=== PATIENT | male | born 2000 | race Caucasian/White ===

== ENCOUNTER 2020-11-24 10:27 | Outpatient (REF) | payer BC, MEDICAID, SELFPAY ==
[2020-11-24 11:17] LABS: MANUAL DIFF FLAG NO
[2020-11-24 11:29] LABS: Basophils Absolute Auto 0.1 X10*3/uL (0.0-0.2); Basophils Percent Auto 0.4 % (0-2); Eosinophils Absolute Auto 0.1 X10*3/uL (0.0-0.4); Hematocrit 47.9 % (42-52); Hemoglobin 16.2 g/dl (14.0-18.0); Imm Gran Abs Auto 0.03 X10*3/uL (0.00-0.03); Imm Gran Pct Auto 0.2 % (0.0-0.4); Lymphocytes Absolute Auto 3.6 X10*3/uL (1.2-4.9); Lymphocytes Percent Auto 29.4 % (20-40); Mean Corpuscular HGB Conc 33.8 g/dl (31.0-36.0); Mean Corpuscular Hemoglobin 30.6 pg (27.0-33.0); Mean Corpuscular Volume 90.4 fL (80-98); Mean Platelet Volume 10.7 fL (9.4-12.4); Monocytes Absolute Auto 0.9 X10*3/uL (0.1-1.2); Monocytes Percent Auto 6.9 % (2-11); Neutrophils Absolute Auto 7.7 X10*3/uL (2.0-8.3); Neutrophils Percent Auto 62.1 % (45-73); Platelet Count 302 X10*3/uL (160-400); Red Cell Distribution Width 13.3 % (11.0-16.0); White Blood Count 12.3 X10*3/uL (4.8-10.8)
[2020-11-24 12:11] LABS: TSH reflex Free T4 1.99 uIU/mL (0.32-4.0)
[2020-12-01 06:26] LABS: Vitamin D 25-OH, D2 <4 ng/mL; Vitamin D 25-OH, D3 <4 ng/mL; Vitamin D 25-OH, Total <4 ng/mL (30-100)
== END 2020-11-24 10:28 | disposition home or self-care (01) ==
LOC: HO.LAB 10:27
PROVIDERS: PCP Pediatrics; Visit Provider Pediatrics
DX: F32.2 Major depressive disorder, single episode, severe without psychotic features (principal)
CPT/HCPCS: 36415; 82306; 84443; 85025

== ENCOUNTER 2021-11-01 14:17 | Outpatient (REF) | payer OTHER, MEDICAID, SELFPAY ==
[2021-11-01 14:34] LABS: MANUAL DIFF FLAG NO
[2021-11-01 14:59] LABS: Basophils Absolute Auto 0.1 X10*3/uL (0.0-0.2); Basophils Percent Auto 0.5 % (0-2); Eosinophils Absolute Auto 0.2 X10*3/uL (0.0-0.4); Eosinophils Percent Auto 1.8 % (0-4); Hematocrit 46.6 % (42.0-52.0); Hemoglobin 15.8 g/dl (14.0-18.0); Imm Gran Abs Auto 0.04 X10*3/uL (0.00-0.03); Imm Gran Pct Auto 0.3 % (0.0-0.4); Lymphocytes Absolute Auto 3.1 X10*3/uL (1.2-4.9); Lymphocytes Percent Auto 25.5 % (20-40); Mean Corpuscular HGB Conc 33.9 g/dl (31.0-36.0); Mean Corpuscular Hemoglobin 29.7 pg (27.0-33.0); Mean Corpuscular Volume 87.6 fL (80.0-98.0); Mean Platelet Volume 10.4 fL (9.4-12.4); Monocytes Absolute Auto 1.2 X10*3/uL (0.1-1.2); Monocytes Percent Auto 9.5 % (2-11); Neutrophils Absolute Auto 7.5 x10*3/uL (2.0-8.3); Neutrophils Percent Auto 62.4 % (45-73); Platelet Count 306 X10*3/uL (160-400); Red Blood Count 5.32 X10*6/uL (4.60-5.80); Red Cell Distribution Width 13.4 % (11.0-16.0); White Blood Count 12.1 X10*3/uL (4.8-10.8)
[2021-11-01 15:23] LABS: Alanine Aminotransferase 38 U/L (0-40); Albumin Level 4.9 g/dL (3.5-5.0); Alkaline Phosphatase 63 U/L (39-117); Anion Gap 12 (12-20); Aspartate Amino Transferase 27 U/L (5-37); Bilirubin Total 1.5 mg/dL (0.0-1.0); Blood Urea Nitrogen 11 mg/dL (9-16); Carbon Dioxide 28 mmol/L (22-29); Chloride 103 mmol/L (96-108); Estimated Glomerular Filt Rate > 60; Glucose Random 107 mg/dL (60-115); Potassium 3.9 mmol/L (3.3-5.1); Sodium 139 mmol/L (135-145); Total Protein 7.8 g/dL (6.5-8.0)
[2021-11-01 15:44] LABS: TSH reflex Free T4 3.69 uIU/mL (0.32-4.0); Vitamin D 25-OH Total 7.3 ng/mL (>30)
[2021-11-01 15:48] LABS: Vitamin B12 860 pg/mL (200-900)
== END 2021-11-01 14:18 | disposition home or self-care (01) ==
LOC: HO.LAB 14:17
PROVIDERS: PCP Pediatrics; Visit Provider Nurse Practitioner Psychiatric/Mental Health
DX: F33.1 Major depressive disorder, recurrent, moderate (principal)
CPT/HCPCS: 36415; 80053; 82306; 82607; 84443; 85025

== ENCOUNTER 2022-07-09 11:08 | Outpatient (REF) | payer OTHER, MEDICAID, SELFPAY ==
[2022-07-09 11:40] LABS: MANUAL DIFF FLAG NO
[2022-07-09 11:52] LABS: Basophils Absolute Auto 0.1 X10*3/uL (0.0-0.2); Basophils Percent Auto 0.7 % (0-2); Eosinophils Absolute Auto 0.2 X10*3/uL (0.0-0.4); Eosinophils Percent Auto 1.7 % (0-4); Hematocrit 47.1 % (42.0-52.0); Imm Gran Abs Auto 0.03 X10*3/uL (0.00-0.03); Imm Gran Pct Auto 0.3 % (0.0-0.4); Lymphocytes Absolute Auto 4.3 X10*3/uL (1.2-4.9); Lymphocytes Percent Auto 40.1 % (20-40); Mean Corpuscular Hemoglobin 29.6 pg (27.0-33.0); Mean Corpuscular Volume 87.1 fL (80.0-98.0); Mean Platelet Volume 11.1 fL (9.4-12.4); Monocytes Absolute Auto 0.9 X10*3/uL (0.1-1.2); Monocytes Percent Auto 8.5 % (2-11); Neutrophils Absolute Auto 5.3 x10*3/uL (2.0-8.3); Neutrophils Percent Auto 48.7 % (45-73); Platelet Count 302 X10*3/uL (160-400); Red Blood Count 5.41 X10*6/uL (4.60-5.80); Red Cell Distribution Width 13.7 % (11.0-16.0); White Blood Count 10.8 X10*3/uL (4.8-10.8)
[2022-07-09 13:56] LABS: Alanine Aminotransferase 18 U/L (0-40); Albumin Level 5.1 g/dL (3.5-5.0); Alkaline Phosphatase 65 U/L (39-117); Anion Gap 17 (12-20); Aspartate Amino Transferase 15 U/L (5-37); Bilirubin Total 1.5 mg/dL (0.0-1.0); Blood Urea Nitrogen 11 mg/dL (9-16); Carbon Dioxide 27 mmol/L (22-29); Chloride 104 mmol/L (96-108); Cholesterol 150 mg/dL; Estimated Glomerular Filt Rate > 60; Glucose Fasting 87 mg/dL (60-99); HDL Cholesterol 27 mg/dL; LDL Cholesterol Calculated 100 mg/dl; Potassium 4.5 mmol/L (3.3-5.1); Sodium 143 mmol/L (135-145); Total Protein 7.8 g/dL (6.5-8.0); Triglycerides 117 mg/dL
[2022-07-09 14:15] LABS: TSH reflex Free T4 3.76 uIU/mL (0.32-4.0)
== END 2022-07-09 11:09 | disposition home or self-care (01) ==
LOC: HO.HMGCLDS 11:08
PROVIDERS: PCP Nurse Practitioner Family; Visit Provider Nurse Practitioner Family
DX: Z00.00 Encounter for general adult medical examination without abnormal findings (principal)
CPT/HCPCS: 36415; 80053; 80061; 84443; 85025

== ENCOUNTER 2022-07-15 09:29 | Outpatient (REF) | payer OTHER, MEDICAID, SELFPAY ==
[2022-07-15 11:21] LABS: Appearance Urine Clear; Color Urine Yellow; Glucose Urine UA Negative (Negative); Leukocyte Esterase Urine Negative (Negative); Nitrite Urine Negative (Negative); Specific Gravity - Urine >= 1.030 (1.005-1.025); Urine Blood Negative (Negative); Urine Ketones 15 mg/dL (Negative); Urine Protein Trace mg/dL (Neg-Trace)
== END 2022-07-15 09:30 | disposition home or self-care (01) ==
LOC: HO.HMGCLDS 09:29
PROVIDERS: PCP Nurse Practitioner Family; Visit Provider Nurse Practitioner Family
DX: Z00.00 Encounter for general adult medical examination without abnormal findings (principal)
CPT/HCPCS: 81003

== ENCOUNTER 2022-09-08 10:10 | Outpatient (REF) | payer OTHER, MEDICAID, SELFPAY ==
[2022-09-08 11:43] LABS: Bilirubin Direct 0.7 mg/dL (0.0-0.5)
== END 2022-09-08 10:11 | disposition home or self-care (01) ==
LOC: HO.HMGCLDS 10:10
PROVIDERS: PCP Nurse Practitioner Family; Visit Provider Internal Medicine
DX: R17 Unspecified jaundice (principal)
CPT/HCPCS: 36415; 82247; 82248

== ENCOUNTER 2022-09-29 09:50 | Outpatient (REF) | payer OTHER, MEDICAID, SELFPAY ==
--- NOTE | ~2022-09-29 | US_ITS ---
EXAMINATION: US ABDOMEN COMPLETE CLINICAL INFORMATION: Unspecified jaundice. COMPARISON: None TECHNIQUE: Real-time imaging of the abdominal viscera. FINDINGS: PANCREAS: Largely obscured by overlapping bowel gas. ABDOMINAL AORTA: The proximal, mid, and distal segments are normal in caliber. INFERIOR VENA CAVA: Visualized portions are normal. LIVER: Normal. The liver is normal in size. The liver contour is normal. Parenchymal echogenicity is normal. No focal hepatic lesion. There is no intrahepatic biliary duct dilatation seen. GALLBLADDER: Normal. The gallbladder is physiologically distended without evidence of stones, sludge, polyps, wall thickening or pericholecystic fluid. COMMON BILE DUCT: Normal in caliber measuring 0.2 cm in diameter. RIGHT KIDNEY: Normal. No hydronephrosis. No renal calculi or focal parenchymal lesions. The kidney measures 10.8 cm in maximum dimension. LEFT KIDNEY: Normal. No hydronephrosis. No renal calculi or focal parenchymal lesions. The kidney measures 10.6 cm in maximum dimension. SPLEEN: Normal. The spleen measures 9.9 cm in maximum dimension. FREE FLUID: None. US/US abdomen complete IMPRESSION: Unremarkable abdominal ultrasound examination, with imaging of the pancreas technically limited.
== END 2022-09-29 09:51 | disposition home or self-care (01) ==
LOC: HO.HMGCX 09:50
PROVIDERS: PCP Nurse Practitioner Family; Visit Provider Nurse Practitioner Family
DX: R17 Unspecified jaundice (principal)
CPT/HCPCS: 76700

== ENCOUNTER → 2022-10-26 14:51 | Outpatient (BNVA) | payer OTHER, MEDICAID, SELFPAY | PROVIDERS: PCP Nurse Practitioner Family; Visit Provider Internal Medicine | DX: Z13.89 Encounter for screening for other disorder (principal) ==

== ENCOUNTER 2022-11-24 12:03 | Outpatient (REF) | payer OTHER, MEDICAID, SELFPAY ==
[2022-11-24 14:31] LABS: Reticulocyte Percent 1.1 % (0.5-1.8); Reticulocytes Absolute 0.059 X10*6/uL (0.026-0.095)
[2022-11-24 15:05] LABS: Lactate Dehydrogenase 152 U/L (118-273)
[2022-11-26 12:54] LABS: Haptoglobin 120 mg/dL (43-212)
== END 2022-11-24 12:04 | disposition home or self-care (01) ==
LOC: HO.HMGCLDS 12:03
PROVIDERS: PCP Nurse Practitioner Family; Visit Provider Internal Medicine
DX: R17 Unspecified jaundice (principal)
CPT/HCPCS: 36415; 83010; 83615; 85045

== ENCOUNTER 2023-06-29 16:13 | Outpatient (AMB) | payer OTHER, MEDICAID, SELFPAY ==
--- NOTE | 2023-06-29 16:24 | A.OFFPC_ITS ---
Vital Signs 06/29/23 16:27 Height 5 ft 10 in Weight 172 lb BMI 24.7 BP 100/68 Blood Pressure Location Rt brachial Position Sitting Pulse 88 Pulse Source Pulse Oximeter Pulse Oximetry (%) 98 Oxygen Delivery Method Room Air Intake Visit Reasons: PE Allergies No Known Allergies Allergy (Verified 06/29/23 16:28) Medication List - Last Reconciled 06/29/23 by ROBERT Gamez No Known Home Meds Tobacco use date assessed: 12/20/22 Dental Screening Dental Screen Date: 06/29/23 Did you have a dental visit in the last 12 months?: Yes Did you have a dental problem in the last 6 months where you did not have access to dental care?: No Was dental information given to patient?: Patient has dentist HPI PE HPI Details Pt is here for a PE. Labs have already been ordered. Anxiety/depression: Pt reports increased anxiety and depression. Pt has tried multiple medications for this in the past which were not effective. He reports mostly staying in his room and not interacting with people much because of this. He had a friend pass away during his sophomore year of high school which still affects him. Will send citalopram 10mg. Denies any SI and HI. Pt is also interested in seeing a therapist, will consult team. [facility] Medical History (Updated 11/29/22 @ 12:01 by ROBERT Gamez) Ethel disease Surgical History No pertinent past surgical history Family History Mother No problems noted. Father Bipolar 1 disorder Other Mental health disorder Social History Household Members: Family Housing: Apartment Alcohol intake: current Alcohol intake frequency: a few times a week Patient Tobacco Use Status: Never used Tobacco e-Cigarette/Vaping Use: Never Used Second Hand Smoke Exposure: No service: No Current occupational status: unemployed Cognitive needs: No Hearing needs: No Vision needs: Yes (glasses) Questionnaire PHQ-9 Over the last 2 weeks, how often have you been bothered by any of the following problems? 1. Little interest or pleasure in doing things: nearly every day 2. Feeling down, depressed, or hopeless: nearly every day 3. Trouble falling or staying asleep, or sleeping too much: nearly every day 4. Feeling tired or having little energy: nearly every day 5. Poor appetite or overeating: nearly every day 6. Feeling bad about yourself - or that you are a failure or have let yourself or your family down: nearly every day 7. Trouble concentrating on things, such as reading the newspaper or watching television: nearly every day 8. Moving or speaking so slowly that other people could have noticed. Or the opposite - being so fidgety or restless that you have been moving around a lot more than usual: not at all 9. Thoughts that you would be better off or of hurting yourself in some way: several days Total score: 22 Depression Screening Interpretation: Positive Depression Screening Done: Yes 64854 - PHQ-9 Billing: Yes Source: Developed by Drs. Darrick Grady, Mery Conner, Luca Escamilla and colleagues, with an educational kayley from [employer]. Thrive Questionnaire Date Thrive assessed: 12/20/22 I am a: Patient What is your living situation today?: I have a steady place to live Within the past 12 months, did the food you bought not last and you didn't have the money to get more?: Never true Within the past 12 months, did you worry whether your food would run out before you got money to buy more?: Never true Do you have trouble paying for medicines?: No Do you have trouble getting transportation to medical appointments?: No Do you have trouble paying your heating and electricity bill?: No Do you have trouble taking care of your child, family member or friend?: No Do you have trouble with day-to-day activities such as bathing, preparing meals, shopping, managing finances, etc.?: No Are you currently unemployed and looking for a job?: No Are you interested in more education?: No AUDIT C Alcohol Use Questionnaire (AUDIT-C) 1. How often do you have a drink containing alcohol?: Monthly or less 2. How many drinks containing alcohol do you have on a typical day when you are drinking?: 1 or 2 3. How often do you have six or more drinks on one occasion?: Never Total Score: 1 Score Reviewed/Action Taken: No ESTEFANÍA-7 AMB Questionnaire ESTEFANÍA-7 Date ESTEFANÍA - 7 assessed: 12/20/22 Feeling nervous, anxious, or on edge: 3 = Nearly every day Not being able to stop or control worryin = Nearly every day Worrying too much about different things: 3 = Nearly every day Trouble relaxin = Nearly every day Being so restless that it is hard to sit still: 3 = Nearly every day Becoming easily annoyed or irritable: 3 = Nearly every day Feeling afraid as if something awful might happen: 2 = More than half the days Total ESTEFANÍA-7 score (0-4 normal; 5-9 mild; 10-14 moderate; 15-21 severe): 20 Source: Developed by Drs. Darrick Grady, Mery Conner, Luca Escamilla and colleagues, with an educational kayley from [employer]. ESTEFANÍA-7 Assessment Billing ESTEFANÍA-7 Assessment Tool: ESTEFANÍA-7 Assessment 78480 Review of Systems Const Denies chills and Denies fever(s) Eyes Denies blurry vision ENT Denies vertigo, Denies dizziness and Denies sore throat Card Denies chest pain at rest, Denies chest pain with activity, Denies diaphoresis, Denies dyspnea and Denies dyspnea on exertion Resp Denies cough, Denies dyspnea, Denies dyspnea on exertion and Denies wheezing GI Denies abdominal pain, Denies melena, Denies hematochezia, Denies constipation, Denies diarrhea and Denies loose stools Denies hematuria Musc Denies numbness and Denies tingling Skin/Breast Denies lesions Neuro Denies vertigo, Denies dizziness, Denies numbness and Denies tingling Psych Reports anxiety, Reports depression, Denies homicidal ideation, Denies suicidal ideation and Denies other (substance abuse) Aller/Immun Denies wheezing Physical exam (Primary Care) Vital Signs: Last Vital Signs Pulse 88 06/29/23 16:27 BP 100/68 06/29/23 16:27 Pulse Ox 98 06/29/23 16:27 Oxygen Delivery Method Room Air 06/29/23 16:27 BMI result Body Mass Index 24.7 Tobacco/Smoking Status: Tobacco use Status Tobacco use date assessed 12/20/22 06/29/23 16:25 Patient Tobacco Use Status Never used Tobacco 06/29/23 16:25 e-Cigarette/Vaping Use Never Used 06/29/23 16:25 PHQ-9: PHQ-9 Score PHQ-9: Total score 22 06/29/23 17:35 Depression Screening Interpretation: Positive Thrive Assessment: Date of Thrive Assessment Date Thrive assessed 12/20/22 06/29/23 16:25 Const General: cooperative Nutritional Appearance: well nourished Orientation/consciousness: patient oriented x3 HENMT Head: Yes normal to inspection, Yes normocephalic and Yes atraumatic Ears: TM's normal bilaterally Eyes General: appearance normal, both eyes and all related structures Alignment and Position: alignment normal and position normal Neck Neck: Yes normal visual inspection and Yes no lymphadenopathy Thyroid: Thyroid normal Resp Effort & Inspection: normal respiratory effort Auscultation: clear to auscultation bilaterally Cardio Rate: regular rate Rhythm: regular rhythm Heart sounds: S1 normal heart sound present, S2 normal heart sound present and no murmurs GI Palpation (GI): Soft to palpation and nontender Auscultation: normal bowel sounds Skin Rashes: no rashes Neuro General: patient oriented x3, moves all extremities, no focal motor deficits and deep tendon reflexes 2+ bilaterally Romberg Test: Negative Psych Appearance: grossly normal Mental Status: mental status grossly normal Speech and movement: Normal speech and movement present Affect: normal affect Attitude: cooperative Thought process: Normal thought process present Thought content: Normal thought content present Insight: Good insight present (Psych) Judgement: Good judgement present (Psych) Assessment and Plan Assessment & Plan (1) Depression: Code(s): F32.9 - Major depressive disorder, single episode, unspecified Qualifiers: Depression Type: major depressive disorder Major depression recurrence: unspecified whether recurrent Active/Remission status: currently active Major depression episode severity: severe Psychotic features: without psychotic features Qualified Code(s): F32.2 - Major depressive disorder, single episode, severe without psychotic features (2) Anxiety: Code(s): F41.9 - Anxiety disorder, unspecified (3) Physical exam: Code(s): Z00.00 - Encounter for general adult medical examination without abnormal findings Plan The patient agreed to the use of a medical information officer for this encounter. Scribed for ROBERT Wellington by Siria Magdaleno, medical information officer, on 06/29/2023 at 16:40 EST Medications: New citalopram 10 mg PO DAILY 90 tabs 0RF 90 days Coding Level of Care Code Est Pt Prev Care 18-39y(18756) Diagnoses Current severe episode of major depressive disorder without psychotic features, unspecified whether recurrent F32.2 Depression Type: major depressive disorder Major depression recurrence: unspecified whether recurrent Active/Remission status: currently active Major depression episode severity: severe Psychotic features: without psychotic features Anxiety F41.9 Physical exam Z00.00 Additional Codes ESTEFANÍA-7 Assessment Billing - ESTEFANÍA-7 Assessment Tool: ESTEFANÍA-7 Assessment [id number] ([id number])
[2023-06-29 16:27] VITALS: BP 100/68; PULSE 88; O2SAT 98; BMI 24.7
== END 2023-06-29 17:13 | disposition home or self-care (01) ==
PROVIDERS: Visit Provider Nurse Practitioner Family
DX: Z00.00 Encounter for general adult medical examination without abnormal findings (principal); F32.2 Major depressive disorder, single episode, severe without psychotic features; F41.9 Anxiety disorder, unspecified
CPT/HCPCS: 96127; 99395

== ENCOUNTER 2023-09-25 10:10 | Outpatient (REF) | payer OTHER, MEDICAID, SELFPAY ==
[2023-09-25 13:35] LABS: MANUAL DIFF FLAG NO
[2023-09-25 13:46] LABS: Basophils Absolute Auto 0.1 X10*3/uL (0.0-0.2); Basophils Percent Auto 0.8 % (0-2); Eosinophils Absolute Auto 0.2 X10*3/uL (0.0-0.4); Hematocrit 48.3 % (42.0-52.0); Hemoglobin 16.5 g/dl (14.0-18.0); Imm Gran Abs Auto 0.03 X10*3/uL (0.00-0.03); Imm Gran Pct Auto 0.3 % (0.0-0.4); Lymphocytes Absolute Auto 3.5 X10*3/uL (1.2-4.9); Lymphocytes Percent Auto 35.4 % (20-40); Mean Corpuscular HGB Conc 34.2 g/dl (31.0-36.0); Mean Corpuscular Hemoglobin 30.8 pg (27.0-33.0); Mean Corpuscular Volume 90.3 fL (80.0-98.0); Monocytes Absolute Auto 0.8 X10*3/uL (0.1-1.2); Monocytes Percent Auto 8.5 % (2-11); Neutrophils Absolute Auto 5.3 x10*3/uL (2.0-8.3); Platelet Count 283 X10*3/uL (160-400); Red Blood Count 5.35 X10*6/uL (4.60-5.80); Red Cell Distribution Width 13.6 % (11.0-16.0); White Blood Count 9.9 X10*3/uL (4.8-10.8)
[2023-09-25 13:49] LABS: Appearance Urine Turbid; Color Urine Dark Yellow; Glucose Urine UA Negative (Negative); Leukocyte Esterase Urine Negative (Negative); Nitrite Urine Negative (Negative); PH 5.5 (5.0-9.0); Specific Gravity - Urine >= 1.030 (1.005-1.025); Urine Blood Negative (Negative); Urine Ketones Negative (Negative); Urine Protein Negative (Neg-Trace)
[2023-09-25 14:27] LABS: Alanine Aminotransferase 47 U/L (0-40); Albumin Level 4.7 g/dL (3.5-5.0); Alkaline Phosphatase 56 U/L (39-117); Anion Gap 13 (12-20); Aspartate Amino Transferase 27 U/L (5-37); Bilirubin Total 1.1 mg/dL (0.0-1.0); Blood Urea Nitrogen 9 mg/dL (9-16); Calcium 9.9 mg/dL (8.4-10.2); Carbon Dioxide 32 mmol/L (22-29); Chloride 102 mmol/L (96-108); Cholesterol 148 mg/dL (<200); Estimated Glomerular Filt Rate > 60; Glucose Fasting 87 mg/dL (60-99); HDL Cholesterol 29 mg/dL (>40); LDL Cholesterol Calculated 95 mg/dL (<100); Potassium 4.1 mmol/L (3.3-5.1); Sodium 143 mmol/L (135-145); Total Protein 7.7 g/dL (6.5-8.0); Triglycerides 120 mg/dL (<150)
[2023-09-25 14:33] LABS: TSH reflex Free T4 2.58 uIU/mL (0.32-4.0)
== END 2023-09-25 10:11 | disposition home or self-care (01) ==
LOC: HO.HMGCLDS 10:10
PROVIDERS: PCP Nurse Practitioner Family; Visit Provider Nurse Practitioner Family
DX: Z00.00 Encounter for general adult medical examination without abnormal findings (principal)
CPT/HCPCS: 36415; 80053; 80061; 81003; 84443; 85025

== ENCOUNTER 2023-10-11 09:33 | Outpatient (AMB) | payer OTHER, MEDICAID, SELFPAY ==
[2023-10-11 09:46] VITALS: BP 110/68; PULSE 86; O2SAT 98; BMI 26.3
--- NOTE | 2023-10-11 09:46 | A.OFFPC_ITS ---
Vital Signs 10/11/23 09:46 Height 5 ft 10 in Weight 183 lb 2 oz BMI 26.3 BP 110/68 Blood Pressure Location Lt brachial Position Sitting Pulse 86 Pulse Source Pulse Oximeter Pulse Oximetry (%) 98 Oxygen Delivery Method Room Air Intake Visit Reasons: 3-4 month follow up Intake Note: Pt is here to follow up for his anxiety and depression Allergies No Known Allergies Allergy (Verified 10/11/23 09:50) Medication List - Last Reconciled 10/11/23 by ROBERT Gamez citalopram 20 mg PO DAILY 90 days Tobacco use date assessed: 10/11/23 Dental Screening Dental Screen Date: 10/11/23 Did you have a dental visit in the last 12 months?: Yes Did you have a dental problem in the last 6 months where you did not have access to dental care?: No Was dental information given to patient?: Patient has dentist HPI 3-4 month follow up HPI Details Anxiety/depression: Pt is currently taking citalopram 10mg. He is seeing a therapist. Pt reports that citalopram is working somewhat. Will incre ase from 10mg to 20mg. Denies any SI and HI. He is going outside intermittently to walk his dog. He also went to [employer] recently with his mother. Pt does not currently work. Goal is to get pt out into society more and start looking for a job. [facility] Medical History Emden disease Surgical History No pertinent past surgical history Family History Mother No problems noted. Father Bipolar 1 disorder Other Mental health disorder Social History Household Members: Family Housing: Apartment Alcohol intake: current Alcohol intake frequency: a few times a week Patient Tobacco Use Status: Never used Tobacco e-Cigarette/Vaping Use: Never Used Second Hand Smoke Exposure: No service: No Current occupational status: unemployed Cognitive needs: No Hearing needs: No Vision needs: Yes (glasses) Questionnaire PHQ-9 Over the last 2 weeks, how often have you been bothered by any of the following problems? 1. Little interest or pleasure in doing things: nearly every day 2. Feeling down, depressed, or hopeless: nearly every day 3. Trouble falling or staying asleep, or sleeping too much: nearly every day 4. Feeling tired or having little energy: nearly every day 5. Poor appetite or overeating: nearly every day 6. Feeling bad about yourself - or that you are a failure or have let yourself or your family down: nearly every day 7. Trouble concentrating on things, such as reading the newspaper or watching television: nearly every day 8. Moving or speaking so slowly that other people could have noticed. Or the opposite - being so fidgety or restless that you have been moving around a lot more than usual: not at all 9. Thoughts that you would be better off or of hurting yourself in some way: more than half the days Total score: 23 Source: Developed by Drs. Darrick Grady, Mery Conner, Luca Escamilla and colleagues, with an educational kayley from [employer]. Thrive Questionnaire Date Thrive assessed: 10/11/23 I am a: Patient What is your living situation today?: I have a steady place to live Within the past 12 months, did the food you bought not last and you didn't have the money to get more?: Never true Within the past 12 months, did you worry whether your food would run out before you got money to buy more?: Never true Do you have trouble paying for medicines?: No Do you have trouble getting transportation to medical appointments?: No Do you have trouble paying your heating and electricity bill?: No Do you have trouble taking care of your child, family member or friend?: No Do you have trouble with day-to-day activities such as bathing, preparing meals, shopping, managing finances, etc.?: No Are you currently unemployed and looking for a job?: No Are you interested in more education?: No THRIVE Score: 0 AUDIT C Alcohol Use Questionnaire (AUDIT-C) 1. How often do you have a drink containing alcohol?: Monthly or less 2. How many drinks containing alcohol do you have on a typical day when you are drinking?: 1 or 2 3. How often do you have six or more drinks on one occasion?: Less than monthly Total Score: 2 ESTEFANÍA-7 AMB Questionnaire ESTEFANÍA-7 Date ESTEFANÍA - 7 assessed: 10/11/23 Feeling nervous, anxious, or on edge: 3 = Nearly every day Not being able to stop or control worryin = Nearly every day Worrying too much about different things: 3 = Nearly every day Trouble relaxin = Nearly every day Being so restless that it is hard to sit still: 3 = Nearly every day Becoming easily annoyed or irritable: 1 = Several days Feeling afraid as if something awful might happen: 3 = Nearly every day Total ESTEFANÍA-7 score (0-4 normal; 5-9 mild; 10-14 moderate; 15-21 severe): 19 Source: Developed by Drs. Darrick Grady, Mery Conner, Luca Escamilla and colleagues, with an educational kayley from [employer]. Review of Systems Const Reports as per HPI Physical exam (Primary Care) Vital Signs: Last Vital Signs Pulse 86 10/11/23 09:46 BP 110/68 10/11/23 09:46 Pulse Ox 98 10/11/23 09:46 Oxygen Delivery Method Room Air 10/11/23 09:46 BMI result Body Mass Index 26.3 Tobacco/Smoking Status: Tobacco use Status Tobacco use date assessed 10/11/23 10/11/23 09:53 Patient Tobacco Use Status Never used Tobacco 10/11/23 09:46 e-Cigarette/Vaping Use Never Used 10/11/23 09:46 PHQ-9: PHQ-9 Score PHQ-9: Total score 23 10/11/23 10:06 Thrive Assessment: Date of Thrive Assessment Date Thrive assessed 10/11/23 10/11/23 09:57 Const General: cooperative Orientation/consciousness: patient oriented x3 Resp Effort & Inspection: normal respiratory effort Auscultation: clear to auscultation bilaterally Cardio Rate: regular rate Rhythm: regular rhythm Heart sounds: S1 normal heart sound present and S2 normal heart sound present Neuro General: patient oriented x3 Psych Appearance: grossly normal Mental Status: mental status grossly normal Speech and movement: Normal speech and movement present Affect: normal affect Attitude: cooperative Thought process: Normal thought process present Thought content: Normal thought content present Insight: Good insight present (Psych) Judgement: Good judgement present (Psych) Assessment and Plan Assessment & Plan (1) Anxiety: Code(s): F41.9 - Anxiety disorder, unspecified Plan: Increasing citalopram from 10mg to 20mg, goal is to get pt out in society more and to look for a job (2) Depression: Code(s): F32.9 - Major depressive disorder, single episode, unspecified Qualifiers: Active/Remission status: currently active Depression Type: major depressive disorder Major depression episode severity: severe Major depression recurrence: unspecified whether recurrent Psychotic features: without psychotic features Qualified Code(s): F32.2 - Major depressive disorder, single episode, severe without psychotic features Plan: Increasing citalopram from 10mg to 20mg, goal is to get pt out in society more and to look for a job Plan The patient agreed to the use of a medical genetics director for this encounter. Scribed for DARNELL Wellington-JOHN PAUL by Siria Dolan medical genetics director, on 10/11/2023 at 10:00 EST. Medications: Changed From citalopram 10 mg PO DAILY 90 days 90 tabs 0RF To citalopram 20 mg PO DAILY 90 days 90 tabs 0RF Coding Level of Care Code Est Pt Level 3 (45846) Diagnoses Anxiety F41.9 Current severe episode of major depressive disorder without psychotic features, unspecified whether recurrent F32.2 Active/Remission status: currently active Depression Type: major depressive disorder Major depression episode severity: severe Major depression recurrence: unspecified whether recurrent Psychotic features: without psychotic features
== END 2023-10-11 10:14 | disposition home or self-care (01) ==
PROVIDERS: PCP Nurse Practitioner Family; Visit Provider Nurse Practitioner Family
DX: F41.9 Anxiety disorder, unspecified (principal); F32.2 Major depressive disorder, single episode, severe without psychotic features
CPT/HCPCS: 99213

== ENCOUNTER 2023-11-23 07:20 | Outpatient (AMB) | payer OTHER, MEDICAID, SELFPAY ==
--- NOTE | 2023-11-23 07:25 | A.OFFPC_ITS ---
Intake Visit Reasons: medication Allergies No Known Allergies Allergy (Verified 11/23/23 07:38) Medication List - Last Reconciled 11/23/23 by ROBERT Gamez No Known Home Meds Tobacco use date assessed: 10/11/23 HPI medication HPI Details Anxiety/depression: Pt is currently taking citalopram 20mg which was increased in September. He reports that this is not helping and has made his symptoms worse. Pt has stopped this med. Pt sees a therapist who has referred him to a psychiatrist. Denies any SI and HI. will await psychiatry's input [facility] Medical History Vaughn disease Surgical History No pertinent past surgical history Family History Mother No problems noted. Father Bipolar 1 disorder Other Mental health disorder Social History Household Members: Family Housing: Apartment Alcohol intake: current Alcohol intake frequency: a few times a week Patient Tobacco Use Status: Never used Tobacco e-Cigarette/Vaping Use: Never Used Second Hand Smoke Exposure: No service: No Current occupational status: unemployed Cognitive needs: No Hearing needs: No Vision needs: Yes (glasses) Questionnaire Thrive Questionnaire Date Thrive assessed: 10/11/23 ESTEFANÍA-7 AMB Questionnaire ESTEFANÍA-7 Date ESTEFANÍA - 7 assessed: 10/11/23 Source: Developed by Drs. Darrick Grady, Mery Conner, Luca Escamilla and colleagues, with an educational kayley from [employer]. Review of Systems Const Reports as per HPI Physical exam (Primary Care) Tobacco/Smoking Status: Tobacco use Status Tobacco use date assessed 10/11/23 11/23/23 07:28 Patient Tobacco Use Status Never used Tobacco 11/23/23 07:28 e-Cigarette/Vaping Use Never Used 11/23/23 07:28 Thrive Assessment: Date of Thrive Assessment Date Thrive assessed 10/11/23 11/23/23 07:28 Const General: cooperative Orientation/consciousness: patient oriented x3 Neuro General: patient oriented x3 Psych Appearance: grossly normal Mental Status: mental status grossly normal Speech and movement: Clear speech present Affect: normal affect Attitude: cooperative Thought process: Normal thought process present Thought content: Normal thought content present Insight: Good insight present (Psych) Judgement: Good judgement present (Psych) Telehealth Telehealth Location of provider rendering services: practice address Location of patient: address on file Patient Identification confirmed using: Name, : Yes Telehealth method: video Patient verbally consented to treatment: Yes Patient verbally consented to billing insurance company: Yes Patient informed of any privacy concerns related to visit: Yes Minutes spent on Phone/Video with Pt.: 10 Assessment and Plan Assessment & Plan (1) Anxiety: Code(s): F41.9 - Anxiety disorder, unspecified (2) Depression: Code(s): F32.9 - Major depressive disorder, single episode, unspecified Qualifiers: Depression Type: major depressive disorder Major depression recurrence: unspecified whether recurrent Active/Remission status: currently active Major depression episode severity: severe Psychotic features: without psychotic features Qualified Code(s): F32.2 - Major depressive disorder, single episode, severe without psychotic features Plan: seeing therapist, and already referred to a psychiatrist Plan The patient agreed to the use of a medical records custodian for this encounter. Scribed for ROBERT Wellington by Siria Dolan medical records custodian, on 11/23/2023 at 07:25 EST. Medications: Discontinued citalopram Discontinued Reason: Doctor's Order 20 mg PO DAILY 90 tabs 0RF 90 days Coding Level of Care Code Tele Est Pt Level 3 (12519) Diagnoses Anxiety F41.9 Current severe episode of major depressive disorder without psychotic features, unspecified whether recurrent F32.2 Depression Type: major depressive disorder Major depression recurrence: unspecified whether recurrent Active/Remission status: currently active Major depression episode severity: severe Psychotic features: without psychotic features
== END 2023-11-23 15:41 | disposition home or self-care (01) ==
LOC: HO.HMGC 07:20
PROVIDERS: PCP Nurse Practitioner Family; Visit Provider Nurse Practitioner Family
DX: F41.9 Anxiety disorder, unspecified (principal); F32.2 Major depressive disorder, single episode, severe without psychotic features
CPT/HCPCS: 99213

== ENCOUNTER 2024-03-20 07:04 | Outpatient (AMB) | payer OTHER, MEDICAID, SELFPAY ==
--- NOTE | 2024-03-20 07:09 | MHC.PC.OV ---
Intake Visit Reasons: CheckUp Allergies No Known Allergies Allergy (Verified 11/23/23 07:38) Medication List - Last Reconciled 03/20/24 by ROBERT Gamez bupropion HCl XL (Wellbutrin XL) 150 mg PO QAM Tobacco use date assessed: 10/11/23 Dental Screening Dental Screen Date: 10/11/23 HPI CheckUp HPI Details Anxiety/depression: Pt is seeing a psychiatrist. He was recently started on bupropion 150mg approximately 2 weeks ago. He does not notice much of a difference yet. Pt will be following up with his psychiatrist in the near future. Denies any SI and HI. [facility] Medical History [place] disease Surgical History No pertinent past surgical history Family History Mother No problems noted. Father Bipolar 1 disorder Other Mental health disorder Social History Household Members: Family Housing: Apartment Alcohol intake: current Alcohol intake frequency: a few times a week Patient Tobacco Use Status: Never used Tobacco e-Cigarette/Vaping Use: Never Used Second Hand Smoke Exposure: No service: No Current occupational status: unemployed Cognitive needs: No Hearing needs: No Vision needs: Yes (glasses) Questionnaire Thrive Questionnaire Date Thrive assessed: 10/11/23 ESTEFANÍA-7 AMB Questionnaire ESTEFANÍA-7 Date ESTEFANÍA - 7 assessed: 10/11/23 Source: Developed by Drs. Darrick Grady, Mery Conner, Luca Escamilla and colleagues, with an educational kayley from [employer]. Review of Systems Const Reports as per HPI Physical exam (Primary Care) Tobacco/Smoking Status: Tobacco use Status Tobacco use date assessed 10/11/23 11/23/23 07:28 Patient Tobacco Use Status Never used Tobacco 11/23/23 07:28 e-Cigarette/Vaping Use Never Used 11/23/23 07:28 Thrive Assessment: Date of Thrive Assessment Date Thrive assessed 10/11/23 11/23/23 07:28 Const General: cooperative Orientation/consciousness: patient oriented x3 Neuro General: patient oriented x3 Psych Appearance: grossly normal Mental Status: mental status grossly normal Speech and movement: Clear speech present Affect: normal affect Attitude: cooperative Thought process: Normal thought process present Thought content: Normal thought content present Insight: Good insight present (Psych) Judgement: Good judgement present (Psych) Telehealth Telehealth Telehealth Platform: [employer] Location of provider rendering services: practice address Location of patient: address on file Patient Identification confirmed using: Name, : Yes Telehealth method: video Patient verbally consented to treatment: Yes Patient verbally consented to billing insurance company: Yes Patient informed of any privacy concerns related to visit: Yes Minutes spent on Phone/Video with Pt.: 5 Assessment and Plan Assessment & Plan (1) Depression: Code(s): F32.9 - Major depressive disorder, single episode, unspecified Qualifiers: Active/Remission status: currently active Depression Type: major depressive disorder Major depression episode severity: severe Major depression recurrence: unspecified whether recurrent Psychotic features: without psychotic features Qualified Code(s): F32.2 - Major depressive disorder, single episode, severe without psychotic features Plan: pt will be following up with his psychiatrist in approx 2 weeks. He has been on wellbutrin XL x 2 weeks (approx) so-far. Will await psych's input. (2) Anxiety: Code(s): F41.9 - Anxiety disorder, unspecified Plan: Continue bupropion, seeing psychiatrist Plan The patient agreed to the use of a medical transcription supervisor for this encounter. Scribed for ROBERT Wellington by Siria Dolan medical transcription supervisor, on 03/20/2024 at 07:10 EST. Coding Level of Care Code Tele Est Pt Level 3 (70097) Diagnoses Current severe episode of major depressive disorder without psychotic features, unspecified whether recurrent F32.2 Active/Remission status: currently active Depression Type: major depressive disorder Major depression episode severity: severe Major depression recurrence: unspecified whether recurrent Psychotic features: without psychotic features Anxiety F41.9
== END 2024-03-20 12:04 | disposition home or self-care (01) ==
LOC: HO.HMGC 07:04
PROVIDERS: PCP Nurse Practitioner Family; Visit Provider Nurse Practitioner Family
DX: F32.2 Major depressive disorder, single episode, severe without psychotic features (principal); F41.9 Anxiety disorder, unspecified
CPT/HCPCS: 99213

== ENCOUNTER 2024-07-22 10:27 | Outpatient (AMB) | payer OTHER, MEDICAID, SELFPAY ==
[2024-07-22 10:28] VITALS: BP 118/76; PULSE 89; O2SAT 98; BMI 25.4
--- NOTE | 2024-07-22 10:28 | MHC.PC.OV ---
Vital Signs 07/22/24 10:28 Height 5 ft 10 in Weight 177 lb 2 oz BMI 25.4 BP 118/76 Blood Pressure Location Rt brachial Position Sitting Pulse 89 Pulse Source Pulse Oximeter Pulse Oximetry (%) 98 Intake Visit Reasons: PE Intake Note: pt is here for PE Dairy Nutrition Consultant Required: No Allergies No Known Allergies Allergy (Verified 07/22/24 10:29) Medication List - Last Reconciled 07/22/24 by ROBERT Gamez bupropion HCl XL 300 mg PO DAILY Tobacco use date assessed: 10/11/23 Dental Screening Dental Screen Date: 10/11/23 HPI PE HPI Details Pt is here for a PE. Will order labs. Pt is going for TMS treatment for depression. He reports that this is working well. Pt sees a therapist and a psychiatrist. Denies any SI and HI. [facility] Medical History [place] disease Surgical History No pertinent past surgical history Family History Mother No problems noted. Father Bipolar 1 disorder Other Mental health disorder Social History Household Members: Family Housing: Apartment Alcohol intake: current Alcohol intake frequency: a few times a week Patient Tobacco Use Status: Never used Tobacco e-Cigarette/Vaping Use: Never Used Second Hand Smoke Exposure: No service: No Current occupational status: unemployed Cognitive needs: No Hearing needs: No Vision needs: Yes (glasses) Questionnaire PHQ-9 Over the last 2 weeks, how often have you been bothered by any of the following problems? 1. Little interest or pleasure in doing things: nearly every day 2. Feeling down, depressed, or hopeless: nearly every day 3. Trouble falling or staying asleep, or sleeping too much: several days 4. Feeling tired or having little energy: more than half the days 5. Poor appetite or overeating: not at all 6. Feeling bad about yourself - or that you are a failure or have let yourself or your family down: nearly every day 7. Trouble concentrating on things, such as reading the newspaper or watching television: more than half the days 8. Moving or speaking so slowly that other people could have noticed. Or the opposite - being so fidgety or restless that you have been moving around a lot more than usual: not at all 9. Thoughts that you would be better off or of hurting yourself in some way: several days Total score: 15 Depression Screening Interpretation: Positive (has a therapist and psychiatrist. Magnetic therapy is working well (according to pt)) Depression Screening Follow-up: Existing condition and In treatment Depression Screening Done: Yes 97466 - PHQ-9 Billing: Yes Source: Developed by Drs. Darrick Grady, Mery Conner, Luca Escamilla and colleagues, with an educational kayley from [employer]. Thrive Questionnaire Date Thrive assessed: 07/22/24 I am a: Patient What is your living situation today?: I have a steady place to live Within the past 12 months, did the food you bought not last and you didn't have the money to get more?: Never true Within the past 12 months, did you worry whether your food would run out before you got money to buy more?: Never true Do you have trouble paying for medicines?: No Do you have trouble getting transportation to medical appointments?: No Do you have trouble paying your heating and electricity bill?: No Do you have trouble taking care of your child, family member or friend?: No Do you have trouble with day-to-day activities such as bathing, preparing meals, shopping, managing finances, etc.?: No Are you currently unemployed and looking for a job?: No Are you interested in more education?: No Please select the resources that you would like help with: None Currently or been in a relationship where the following occur: No concerns reported THRIVE Score: 0 AUDIT C Alcohol Use Questionnaire (AUDIT-C) 1. How often do you have a drink containing alcohol?: Monthly or less 2. How many drinks containing alcohol do you have on a typical day when you are drinking?: 1 or 2 3. How often do you have six or more drinks on one occasion?: Less than monthly Total Score: 2 Score Reviewed/Action Taken: Yes ESTEFANÍA-7 AMB Questionnaire ESTEFANÍA-7 Date ESTEFANÍA - 7 assessed: 07/22/24 Feeling nervous, anxious, or on edge: 3 = Nearly every day Not being able to stop or control worryin = More than half the days Worrying too much about different things: 3 = Nearly every day Trouble relaxin = Nearly every day Being so restless that it is hard to sit still: 1 = Several days Becoming easily annoyed or irritable: 1 = Several days Feeling afraid as if something awful might happen: 2 = More than half the days Total ESTEFANÍA-7 score (0-4 normal; 5-9 mild; 10-14 moderate; 15-21 severe): 15 Source: Developed by Drs. Darrick Grady, Mery Conner, Luca Escamilla and colleagues, with an educational kayley from [employer]. ESTEFANÍA-7 Assessment Billing ESTEFANÍA-7 Assessment Tool: ESTEFANÍA-7 Assessment 98471 Review of Systems Const Denies chills and Denies fever(s) Eyes Denies blurry vision ENT Denies vertigo, Denies dizziness and Denies sore throat Card Denies chest pain at rest, Denies chest pain with activity, Denies diaphoresis, Denies dyspnea and Denies dyspnea on exertion Resp Denies cough, Denies dyspnea, Denies dyspnea on exertion and Denies wheezing GI Denies abdominal pain, Denies melena, Denies hematochezia, Denies constipation, Denies diarrhea and Denies loose stools Denies hematuria Musc Denies numbness and Denies tingling Skin/Breast Denies lesions Neuro Denies vertigo, Denies dizziness, Denies numbness and Denies tingling Psych Denies anxiety, Denies depression, Denies homicidal ideation, Denies suicidal ideation and Denies other (substance abuse) Aller/Immun Denies wheezing Physical exam (Primary Care) Vital Signs: Last Vital Signs Pulse 89 07/22/24 10:28 BP 118/76 07/22/24 10:28 Pulse Ox 98 07/22/24 10:28 BMI result Body Mass Index 25.4 Tobacco/Smoking Status: Tobacco use Status Tobacco use date assessed 10/11/23 07/22/24 10:33 Patient Tobacco Use Status Never used Tobacco 07/22/24 10:33 e-Cigarette/Vaping Use Never Used 07/22/24 10:33 PHQ-9: PHQ-9 Score PHQ-9: Total score 15 07/22/24 10:33 Depression Screening Interpretation: Positive (has a therapist and psychiatrist. Magnetic therapy is working well (according to pt)) Depression Screening Follow-up: Existing condition and In treatment Thrive Assessment: Date of Thrive Assessment Date Thrive assessed 07/22/24 07/22/24 10:33 Currently or been in a relationship where the following occur: No concerns reported Const General: cooperative Nutritional Appearance: well nourished Orientation/consciousness: patient oriented x3 HENMT Head: Yes normal to inspection, Yes normocephalic and Yes atraumatic Ears: TM's normal bilaterally Eyes General: appearance normal, both eyes and all related structures Alignment and Position: alignment normal and position normal Neck Neck: Yes normal visual inspection, Yes no lymphadenopathy and Yes supple Resp Effort & Inspection: normal respiratory effort Auscultation: clear to auscultation bilaterally Cardio Rate: regular rate Rhythm: regular rhythm Heart sounds: S1 normal heart sound present, S2 normal heart sound present and no murmurs GI Palpation (GI): Soft to palpation and nontender Auscultation: normal bowel sounds Male General Exam: Yes normal external exam Penis: normal penis Scrotum: scrotum normal, testes descended bilaterally and no inguinal hernias Testes: no testicular mass Skin Rashes: no rashes Neuro General: patient oriented x3, moves all extremities, no focal motor deficits and deep tendon reflexes 2+ bilaterally Romberg Test: Negative Psych Appearance: grossly normal Mental Status: mental status grossly normal Speech and movement: Normal speech and movement present Affect: normal affect Attitude: cooperative Thought process: Normal thought process present Thought content: Normal thought content present Insight: Good insight present (Psych) Judgement: Good judgement present (Psych) Coding Level of Care Code Est Pt Prev Care 18-39y(67837) Diagnoses Major depression in partial remission F32.4 Physical exam Z00.00 Additional Codes ESTEFANÍA-7 Assessment Billing - ESTEFANÍA-7 Assessment Tool: ESTEFANÍA-7 Assessment 04773 ([id number]) PHQ-9 - 13341 - PHQ-9 Billing: Yes ([id number]) Assessment & Plan Assessment & Plan (1) Major depression in partial remission: Comment: TMS treatments Code(s): F32.4 - Major depressive disorder, single episode, in partial remission Category: Medical Plan: continue regime, including TMS treatments (2) Physical exam: Code(s): Z00.00 - Encounter for general adult medical examination without abnormal findings Category: Medical Plan The patient agreed to the use of a certified medical transcriptionist for this encounter. Scribed for ROBERT Wellington by Siria Dolan certified medical transcriptionist, on 07/22/2024 at 11:05 EST. Orders: Orders Complete Blood Count Auto Diff Today F32.4 - Major depressive disorder, single episode, in partial remission, Z00.00 - Encounter for general adult medical examination without abnormal findings UA CC w/rflx Micro + Cult Today F32.4 - Major depressive disorder, single episode, in partial remission, Z00.00 - Encounter for general adult medical examination without abnormal findings Comprehensive [place]. Panel Fast Today F32.4 - Major depressive disorder, single episode, in partial remission, Z00.00 - Encounter for general adult medical examination without abnormal findings TSH reflex Free T4 Today F32.4 - Major depressive disorder, single episode, in partial remission, Z00.00 - Encounter for general adult medical examination without abnormal findings Lipid Panel Today F32.4 - Major depressive disorder, single episode, in partial remission, Z00.00 - Encounter for general adult medical examination without abnormal findings
== END 2024-07-22 11:16 | disposition home or self-care (01) ==
PROVIDERS: PCP Nurse Practitioner Family; Visit Provider Nurse Practitioner Family
DX: F32.4 Major depressive disorder, single episode, in partial remission (principal); Z00.00 Encounter for general adult medical examination without abnormal findings

== ENCOUNTER → 2024-07-22 10:27 | Outpatient (BNVA) | payer OTHER, MEDICAID, SELFPAY | PROVIDERS: PCP Nurse Practitioner Family; Visit Provider Nurse Practitioner Family | DX: Z00.00 Encounter for general adult medical examination without abnormal findings (principal); F32.4 Major depressive disorder, single episode, in partial remission | CPT/HCPCS: 96127 ==

== ENCOUNTER 2025-01-27 15:55 | Outpatient (AMB) | payer OTHER, MEDICAID, SELFPAY ==
--- NOTE | 2025-01-27 15:57 | A.OFFPC_ITS ---
Vital Signs 01/27/25 15:59 Height 5 ft 1 in Weight 168 lb BMI 31.7 BP 115/75 Blood Pressure Location Rt brachial Position Sitting Pulse 99 Pulse Source Pulse Oximeter Temp 98.1 F Temp Source Oral Pulse Oximetry (%) 100 Oxygen Delivery Method Room Air Intake Visit Reasons: 6m follow up [employer] Crewmember Required: No Accompanied by: Self / Same As Patient Allergies No Known Allergies Allergy (Verified 01/27/25 16:12) Medication List - Last Reconciled 01/27/25 by ROBERT Gamez bupropion HCl XL 300 mg PO DAILY dextroamphetamine-amphetamine 10 mg ER 1 cap PO QAM Tobacco use date assessed: 01/27/25 Dental Screening Dental Screen Date: 01/27/25 Did you have a dental visit in the last 12 months?: Yes Did you have a dental problem in the last 6 months where you did not have access to dental care?: No Was dental information given to patient?: Patient has dentist HPI 6m follow up HPI Details Chief Complaint Patient presents for follow-up care related to anxiety and depression. History of Present Illness The patient is a 24-year-old male presenting with follow-up for anxiety and depression. He is currently managed with regular therapeutic sessions alongside psychiatric evaluation. Two months ago, Bupropion 300 XL was initiated, resulting in a positive change in his depressive symptoms. Concurrently, he is taking Adderall 10 mg to manage attention deficit disorder symptoms, with reported improvement. Today, the patient appears well, with no signs of suicidal or homicidal tendencies, indicating favorable management of his mental health conditions. His treatment goals include re-engagement in professional activities, supported by the progress noted with current medications. Social History - Seeks to re-enter the professional [employer] field. Health Maintenance Review of Systems - Psychiatric: Reports improved mood; De nies suicidal ideation, denies homicidal ideation. - Respiratory: Denies symptoms. - Cardiovascular: Denies symptoms. Physical Exam General: Cooperative, healthy appearing, comfortable, no acute distress and well developed Orientation: Patient oriented x3 Limitations: No limitations Head: Normal to inspection Ears: Hearing grossly normal bilaterally Nose: Normal external nose present Face and sinus: Normal facial exam Eyes: Appearance normal, both eyes and all related structures Neck: Normal visual inspection and Yes full ROM Respiratory: Normal respiratory effort and able to speak in complete sentences. Clear to auscultation bilaterally Cardiovascular: Regular rate and rhythm. Normal S1 and S2 GI: Normal to inspection. Soft to palpation and nontender Skin: No rashes or lesions noted Neuro: Patient oriented x3 Extremities: Normal to inspection Results Plan The patient will maintain his medication regimen of Bupropion 300 mg XL and Adderall 10 mg, given the positive response in managing both depression and attention deficit disorder. Continued engagement with mental health professionals is recommended to ensure ongoing assessment and support. A physical examination has been planned for six months to facilitate routine health evaluation. Discussion Notes During this consultation, I emphasized the significance of maintaining current medication regimens due to their success in symptom control. The patient understands the necessity of adhering to prescribed therapies and the importance of follow-up with his mental health providers. Additionally, I encouraged him to contact me directly if any concerns arise. A plan for a physical examination in six months was discussed and agreed upon. Patient Instructions - Continue taking Bupropion 300 mg XL as prescribed. - Continue taking Adderall 10 mg as pres cribed. - Follow up regularly with your therapis t and psychiatrist. - Contact me if you have any questions o r concerns. - Return for a physical exam in six aylin hs. [facility] Medical History [place] disease Surgical History No pertinent past surgical history Family History Mother No problems noted. Father Bipolar 1 disorder Other Mental health disorder Social History Household Members: Family Housing: Apartment Alcohol intake: current Alcohol intake frequency: a few times a week Patient Tobacco Use Status: Never used Tobacco e-Cigarette/Vaping Use: Never Used Second Hand Smoke Exposure: No service: No Current occupational status: unemployed Cognitive needs: No Hearing needs: No Vision needs: Yes (glasses) Questionnaire PHQ-9 Over the last 2 weeks, how often have you been bothered by any of the following problems? 1. Little interest or pleasure in doing things: more than half the days 2. Feeling down, depressed, or hopeless: several days 3. Trouble falling or staying asleep, or sleeping too much: more than half the days 4. Feeling tired or having little energy: several days 5. Poor appetite or overeating: several days 6. Feeling bad about yourself - or that you are a failure or have let yourself or your family down: more than half the days 7. Trouble concentrating on things, such as reading the newspaper or watching television: nearly every day 8. Moving or speaking so slowly that other people could have noticed. Or the opposite - being so fidgety or restless that you have been moving around a lot more than usual: not at all 9. Thoughts that you would be better off or of hurting yourself in some way: not at all Total score: 12 Depression Screening Interpretation: Positive (has a therapist and psychologist, denies any si or hi) Depression Screening Follow-up: Existing condition and In treatment Depression Screening Done: Yes 92884 - PHQ-9 Billing: Yes Source: Developed by Drs. Darrick Grady, Mery Conner, Luca Escamilla and colleagues, with an educational kayley from [employer]. Thrive Questionnaire Date Thrive assessed: 01/27/25 I am a: Patient What is your living situation today?: I have a steady place to live Within the past 12 months, did the food you bought not last and you didn't have the money to get more?: Never true Within the past 12 months, did you worry whether your food would run out before you got money to buy more?: Never true Do you have trouble paying for medicines?: No Do you have trouble getting transportation to medical appointments?: No Do you have trouble paying your heating and electricity bill?: No Do you have trouble taking care of your child, family member or friend?: No Do you have trouble with day-to-day activities such as bathing, preparing meals, shopping, managing finances, etc.?: No Are you currently unemployed and looking for a job?: No Are you interested in more education?: No Please select the resources that you would like help with: None Currently or been in a relationship where the following occur: No concerns reported THRIVE Score: 0 AUDIT C Alcohol Use Questionnaire (AUDIT-C) 1. How often do you have a drink containing alcohol?: Monthly or less 2. How many drinks containing alcohol do you have on a typical day when you are drinking?: 3 or 4 3. How often do you have six or more drinks on one occasion?: Less than monthly Total Score: 3 Score Reviewed/Action Taken: Yes ESTEFANÍA-7 AMB Questionnaire ESTEFANÍA-7 Date ESTEFANÍA - 7 assessed: 01/27/25 Feeling nervous, anxious, or on edge: 1 = Several days Not being able to stop or control worryin = Several days Worrying too much about different things: 1 = Several days Trouble relaxin = More than half the days Being so restless that it is hard to sit still: 3 = Nearly every day Becoming easily annoyed or irritable: 1 = Several days Feeling afraid as if something awful might happen: 1 = Several days Total ESTEFANÍA-7 score (0-4 normal; 5-9 mild; 10-14 moderate; 15-21 severe): 10 Source: Developed by Drs. Darrick Grady, Mery Conner, Luca Escamilla and colleagues, with an educational kayley from [employer]. ESTEFANÍA-7 Assessment Billing ESTEFANÍA-7 Assessment Tool: ESTEFANÍA-7 Assessment 15572 Physical exam (Primary Care) Vital Signs: Last Vital Signs Temp 98.1 F 01/27/25 15:59 Pulse 99 01/27/25 15:59 BP 115/75 01/27/25 15:59 Pulse Ox 100 01/27/25 15:59 Oxygen Delivery Method Room Air 01/27/25 15:59 BMI result Body Mass Index 31.7 Tobacco/Smoking Status: Tobacco use Status Tobacco use date assessed 01/27/25 01/27/25 16:05 Patient Tobacco Use Status Never used Tobacco 01/27/25 16:05 e-Cigarette/Vaping Use Never Used 01/27/25 16:05 PHQ-9: PHQ-9 Score PHQ-9: Total score 12 01/27/25 16:05 Depression Screening Interpretation: Positive (has a therapist and psychologist, denies any si or hi) Depression Screening Follow-up: Existing condition and In treatment Thrive Assessment: Date of Thrive Assessment Date Thrive assessed 01/27/25 01/27/25 16:05 Currently or been in a relationship where the following occur: No concerns reported Coding Level of Care Code Est Pt Level 3 (25019) Diagnoses Current severe episode of major depressive disorder without psychotic features, unspecified whether recurrent F32.2 Active/Remission status: currently active Depression Type: major depressive disorder Major depression episode severity: severe Major depression recurrence: unspecified whether recurrent Psychotic features: without psychotic features Anxiety F41.9 Additional Codes ESTEFANÍA-7 Assessment Billing - ESTEFANÍA-7 Assessment Tool: ESTEFANÍA-7 Assessment 44273 ([id number]) PHQ-9 - 18629 - PHQ-9 Billing: Yes ([id number]) Assessment & Plan Assessment & Plan (1) Depression: Code(s): F32.9 - Major depressive disorder, single episode, unspecified Category: Medical Qualifiers: Active/Remission status: currently active Depression Type: major depressive disorder Major depression episode severity: severe Major depression recurrence: unspecified whether recurrent Psychotic features: without psychotic features Qualified Code(s): F32.2 - Major depressive disorder, single episode, severe without psychotic features (2) Anxiety: Code(s): F41.9 - Anxiety disorder, unspecified Category: Medical Plan .
[2025-01-27 15:59] VITALS: BP 115/75; PULSE 99; TEMP 36.7; O2SAT 100; BMI 31.7
== END 2025-01-27 16:18 | disposition home or self-care (01) ==
LOC: HO.HMCC 15:56
PROVIDERS: PCP Nurse Practitioner Family; Visit Provider Nurse Practitioner Family
DX: F32.2 Major depressive disorder, single episode, severe without psychotic features (principal); F41.9 Anxiety disorder, unspecified

== ENCOUNTER → 2025-01-27 15:55 | Outpatient (BNVA) | payer OTHER, MEDICAID, SELFPAY | PROVIDERS: PCP Nurse Practitioner Family; Visit Provider Nurse Practitioner Family | DX: F32.2 Major depressive disorder, single episode, severe without psychotic features (principal); F41.9 Anxiety disorder, unspecified; Z79.899 Other long term (current) drug therapy | CPT/HCPCS: 96127 ==

== ENCOUNTER 2025-09-10 08:23 | Outpatient (AMB) | payer OTHER, MEDICAID, SELFPAY ==
--- NOTE | 2025-09-10 08:32 | A.OFFPC_ITS ---
Vital Signs 09/10/25 08:42 Height 5 ft 1 in Weight 148 lb BMI 28.0 BP 128/84 Blood Pressure Location Lt brachial Position Sitting Respiration 16 Pulse 126 H Pulse Source Pulse Oximeter Pulse Oximetry (%) 97 Oxygen Delivery Method Room Air Intake Visit Reasons: PE Allergies No Known Allergies Allergy (Verified 09/10/25 09:06) Medication List - Last Reconciled 09/10/25 by ROBERT Gamez atomoxetine 40 mg PO DAILY bupropion HCl XL 450 mg PO DAILY Tobacco use date assessed: 09/10/25 Dental Screening Dental Screen Date: 01/27/25 HPI PE HPI Details History of Present Illness The patient is a 24 year old male presenting for a physical exam. He regularly sees a psychiatrist and a therapist, which he reports is helping. He denies any chest pain, shortness of breath, abdominal pain, blood in stool, constipation, diarrhea, suicidal ideation, or homicidal ideation. Health Maintenance The patient will have fasting labs drawn in the near future. He is scheduled to follow up in 1 year and knows to make contact sooner for any questions or con cerns. Social History - The patient sees a psychiatrist and a therapist on a regular basis and reports this is helping. Review of Systems - Cardiovascular: Denies chest pain. - Respiratory: Denies shortness of breat h. - Gastrointestinal: Denies abdominal wes n, blood in stool, constipation, and diarrhea. - Psychiatric: Denies suicidal or homici keyanna ideation. Physical Exam General: Cooperative, healthy appearing, anxious appearing, no acute distress and well developed Orientation: Patient oriented x3 Limitations: No limitations Head: Normal to inspection Ears: Hearing grossly normal bilaterally Nose: Normal external nose present Face and sinus: Normal facial exam Eyes: Appearance normal, both eyes and all related structures Neck: Normal visual inspection and Yes full ROM Respiratory: Normal respiratory effort and able to speak in complete sentences. Clear to auscultation bilaterally Cardiovascular: Tachycardic. Normal S1 and S2 GI: Normal to inspection. Soft to palpation and nontender : testicles without masses/lesions and no hernias appreciated Skin: No rashes or lesions noted Neuro: Patient oriented x3 Extremities: Normal to inspection Results Plan 1. Tachycardia The patient was noted to be tachycardic on exam, which is suspected to be secondary to anxiety. An EKG will be obtained for further evaluation. 2. Anxiety The patient appeared anxious during the examination, and his tachycardia is thought to be anxiety-provoked. He will continue his regular appointments with his psychiatrist and therapist. Discussion Notes I noted the patient is tachycardic, and he appears a bit anxious, so I suspect the tachycardia is anxiety-provoked. I will obtain an EKG to be thorough. I advised he will need to get fasting labs soon and should follow up in one year, but he knows he can contact me with any further questions or concerns. Patient Instructions - We will get an EKG to check your heart . - Please get your fasting lab work done in the near future. - Continue to see your psychiatrist and therapist regularly. - Please schedule a follow-up visit in o ne year. - Contact us if you have any questions o r concerns. [facility] Medical History Ironside disease Surgical History No pertinent past surgical history Family History Mother No problems noted. Father Bipolar 1 disorder Other Mental health disorder Social History Household Members: Family Housing: Apartment Alcohol intake: current Alcohol intake frequency: a few times a week Patient Tobacco Use Status: Never used Tobacco e-Cigarette/Vaping Use: Never Used Second Hand Smoke Exposure: No service: No Current occupational status: unemployed Cognitive needs: No Hearing needs: No Vision needs: Yes (glasses) Questionnaire Thrive Questionnaire Date Thrive assessed: 01/27/25 What is your living situation today?: I have a steady place to live Within the past 12 months, did the food you bought not last and you didn't have the money to get more?: Never true Within the past 12 months, did you worry whether your food would run out before you got money to buy more?: Never true Do you have trouble paying for medicines?: No Do you have trouble getting transportation to medical appointments?: No Do you have trouble paying your heating and electricity bill?: No Do you have trouble taking care of your child, family member or friend?: No Do you have trouble with day-to-day activities such as bathing, preparing meals, shopping, managing finances, etc.?: No Are you currently unemployed and looking for a job?: No Are you interested in more education?: No Currently or been in a relationship where the following occur: No concerns reported THRIVE Score: 0 ESTEFANÍA-7 AMB Questionnaire ESTEFANÍA-7 Date ESTEFANÍA - 7 assessed: 01/27/25 Source: Developed by Drs. Darrick Grady, Mery Conner, Luca Escamilla and colleagues, with an educational kayley from [employer]. Physical exam (Primary Care) Vital Signs: Last Vital Signs Pulse 126 H 09/10/25 08:42 Resp 16 09/10/25 08:42 BP 128/84 09/10/25 08:42 Pulse Ox 97 09/10/25 08:42 Oxygen Delivery Method Room Air 09/10/25 08:42 BMI result Body Mass Index 28.0 Tobacco/Smoking Status: Tobacco use Status Tobacco use date assessed 09/10/25 09/10/25 08:47 Patient Tobacco Use Status Never used Tobacco 09/10/25 08:32 e-Cigarette/Vaping Use Never Used 09/10/25 08:32 Thrive Assessment: Date of Thrive Assessment Date Thrive assessed 01/27/25 09/10/25 08:32 Currently or been in a relationship where the following occur: No concerns reported Coding Level of Care Code Est Pt Level 3 (34038) Est Pt Prev Care 18-39y(14764) Diagnoses Physical exam Z00.00 Tachycardia R00.0 Assessment & Plan Assessment & Plan (1) Physical exam: Code(s): Z00.00 - Encounter for general adult medical examination without abnormal findings Category: Medical (2) Tachycardia: Code(s): R00.0 - Tachycardia, unspecified Category: Medical Plan . Orders: Orders TSH reflex Free T4 Today Z00.00 - Encounter for general adult medical examination without abnormal findings UA CC w/rflx Micro + Cult Today Z00.00 - Encounter for general adult medical examination without abnormal findings Lipid Panel Today Z00.00 - Encounter for general adult medical examination without abnormal findings Complete Blood Count Auto Diff Today Z00.00 - Encounter for general adult medical examination without abnormal findings Comprehensive [place]. Panel Fast Today Z00.00 - Encounter for general adult medical examination without abnormal findings AMB EKG-In Office Today R00.0 - Tachycardia, unspecified
[2025-09-10 08:42] VITALS: BP 128/84; PULSE 126; RESP 16; O2SAT 97; BMI 28.0
== END 2025-09-10 13:37 | disposition home or self-care (01) ==
LOC: HO.HMCC 08:24
PROVIDERS: PCP Nurse Practitioner Family; Visit Provider Nurse Practitioner Family
DX: Z00.00 Encounter for general adult medical examination without abnormal findings (principal); R00.0 Tachycardia, unspecified

== ENCOUNTER → 2025-09-10 08:23 | Outpatient (BNVA) | payer OTHER, MEDICAID, SELFPAY | PROVIDERS: PCP Nurse Practitioner Family; Visit Provider Nurse Practitioner Family | DX: Z00.01 Encounter for general adult medical examination with abnormal findings (principal); R00.0 Tachycardia, unspecified; F41.9 Anxiety disorder, unspecified; Z13.220 Encounter for screening for lipoid disorders; Z13.29 Encounter for screening for other suspected endocrine disorder; Z13.89 Encounter for screening for other disorder | CPT/HCPCS: 93005 ==